=== PATIENT | female | born 1995 | race Caucasian/White ===

== ENCOUNTER 2023-06-14 12:12 | Emergency (ER) | payer OTHER, SELFPAY ==
[2023-06-14 12:19] VITALS: BP 123/82
--- NOTE | 2023-06-14 15:02 | ED.GENMED ---
History of Present Illness
General
Chief Complaint: Head Injury
Source: patient
Time Seen by Provider: 06/14/23 14:46
Travel History
Have you had any contact with someone who has COVID-19?: No
Do you have any symptoms of coronavirus? Fever > 100 degrees, chills, cough, shortness of breath, sore throat, loss of taste or smell, muscle aches, or headache?: No
History of Present Illness
History of Present Illness:
27-year-old female with past medical history of lupus and migraines presenting to the emergency department for evaluation after she was cleaning her bathroom over the weekend on Tuesday and excellently hit her head on the faucet and tile. She states
that at the time of the injury she felt dazed and had a little bit of blurred vision and has since that time had a headache. Patient's symptoms seem to be worse today and she was convinced by her family to come to the ER for further evaluation.
There is no reported loss of consciousness, vomiting, neck pain or stiffness, fevers or infectious symptoms, use of anticoagulants. Triage notes that patient is on a blood thinner however patient denies this and no thinners are being used. She
states pain is mainly along the mastoid and just anterior to the mastoid as well.
Past History
Past History
ED Past Medical History: Other (Lupus, vestibular migraine)
ED Past Surgical History: None
Social History
Tobacco: Non-smoker
Alcohol: None
Drug: None
Personal: Single
Living: with family
Employment: Employed
Review of Systems
Review of Systems
All Other Systems: ROS reviewed and negative except as documented in HPI and ROS
Phy Exam
Physical Exam
Physical Exam:
GENERAL: Alert , in no apparent distress
EYE: conjunctiva clear, pupils 3 mm bilateral
Head: Normocephalic atraumatic, there is tenderness just posterior to the auricle anterior to the mastoid but without any ecchymosis or breaks in skin or hematomas. Negative Yanes sign and negative raccoon eyes.
NECK: Supple, no midline tenderness
ENT: mmm.
LUNGS: no acute respiratory distress
NEUROLOGICAL: Alert and oriented
SKIN: Warm and dry, skin intact.
MUSCULOSKELETAL: well perfused.
PSYCH: Normal and appropriate interaction.
Scores
Heart Failure Risk
Heart Failure Risk Score: Not Applicable
Heart Score for Chest Pain Patients
STEMI patient?: Not applicable
Withdrawal Assessment of Alcohol
Withdrawal Assessment Completed?: Not applicable
Course
Vital Signs
Initial and Last Documented VS:
Initial Vital Signs
Pulse Resp BP Pulse Ox
95 18 123/82 100
06/14/23 12:19 06/14/23 12:19 06/14/23 12:19 06/14/23 12:19
Last Documented Vital Signs
Pulse Resp BP Pulse Ox
95 18 123/82 100
06/14/23 12:19 06/14/23 12:19 06/14/23 12:19 06/14/23 12:19
MDM/Problems Addressed
Differential Diagnosis Includes:
Concussion, I do not have concern for calvarial fracture or intracranial bleeding
MDM/Problems Addressed:
27-year-old female present emergency department for evaluation after she sustained an accidental head injury 2 days ago. Since that time patient has developed symptoms most consistent with concussion including headache, nausea, difficulty
concentrating and generally feeling unwell. Discussed management and symptoms of concussion with patient. I did offer a head CT however patient declines. Discussed return precautions to the emergency department as well as outpatient management.
She will be provided with a work note for a few days to rest. She is otherwise stable for discharge and aware of return precautions
*Pulse Oximetry
Patient hypoxic: no
*Critical Care Note
Total Time (30-74mins, 75-104mins- exclusive of procedures): Not Applicable
ED Attending Note
-
Portions of this chart may have been created with voice recognition software.� Occasional wrong word or��sound alike� substitutions may have occurred due to the inherent limitations of voice recognition software.
Discharge Plan
Departure
Patient Disposition: Home (Routine Discharge)
Date of Disposition: 06/14/23
Time of Disposition: 15:02
Patient with high blood pressure during this ER visit?: No
Discharge Problem:
Concussion without loss of consciousness
Instructions: Concussion, Adult (DC)
Prescriptions:
No Action
Control
1 tab PO DAILY
aripiprazole 2 MG tablet
2 mg PO DAILY
ondansetron 4 MG tablet,disintegrating
4 mg PO TIDPRN PRN (Reason: nauseu) Qty: 10 0RF
Stand Alone Forms: Return to Work
Interventions
Interventions:
*Risk Screen - Suicide Last Done: 06/14/23 15:01
*General Assessment Last Done: 06/14/23 15:01
*Neglect/Abuse Screening Last Done: 06/14/23 15:01
ED- Fall Risk Assessment Last Done: 06/14/23 14:57
*ED COVID-19 Vaccine History Last Done: 06/14/23 15:01
ED- Neurological Assessment Last Done: 06/14/23 14:57
ED-Skin Assessment Last Done: 06/14/23 14:57
== END 2023-06-14 15:23 | disposition home or self-care (01) ==
LOC: EMR 12:12
PROVIDERS: EMERGENCY PHYSICIAN Emergency Medicine; FAMILY PHYSICIAN Nurse Practitioner Adult Health
DX: S06.0X0A Concussion without loss of consciousness, initial encounter (principal); W22.09XA Striking against other stationary object, initial encounter
CPT/HCPCS: 99283

== ENCOUNTER → 2023-12-29 07:15 | Outpatient (REF) | payer OTHER, SELFPAY | LOC: MRI 3T 07:15 | PROVIDERS: ATTENDING PHYSICIAN Nurse Practitioner Adult Health | DX: G43.101 Migraine with aura, not intractable, with status migrainosus (principal) | CPT/HCPCS: 70551 ==

== ENCOUNTER 2024-04-01 08:44 | Emergency (ER) | payer OTHER, SELFPAY ==
[2024-04-01 08:45] VITALS: BP 108/58
--- NOTE | 2024-04-01 09:22 | ED.GENMED ---
History of Present Illness
General
Chief Complaint: Abdominal Symptoms
Time Seen by Provider: 04/01/24 09:09
History of Present Illness
History of Present Illness:
28-year-old female presents to the emergency department for evaluation of intractable vomiting and diarrhea beginning this morning. No known sick exposures. No significant abdominal pain at this time. No prior abdominal surgeries. Feels
comparable to a past bout of norovirus
Past History
Past History
ED Past Medical History: Other (Lupus, vestibular migraine)
ED Past Surgical History: None
Social History
Tobacco: Non-smoker
Alcohol: None
Drug: None
Personal: Single
Living: with family
Employment: Employed
Review of Systems
Review of Systems
Allergies reviewed?: Yes
All Other Systems: ROS reviewed and negative except as documented in HPI and ROS
Phy Exam
Physical Exam
Physical Exam:
GEN: Well appearing, NAD, WDWN
HEENT: Oral mucosa moist, no scleral icterus
Cardiac: Tachycardia, regular
Lung: No respiratory distress, no tachypnea
Abdomen: Soft, mildly tender in all 4 quadrants
MSK: No gross deformity or injuries
Skin: Good color, no pallor or jaundice, no rashes
Neuro: AO x3, moves all extremities freely
Psych: Calm, cooperative
Course
Orders/Labs/Results
Orders:
Orders
04/01/24 09:21
0.9% Sodium Chloride 1000 ml [Nss] 1,000 ml IV BOLUS
Ondansetron Injectable [Zofran] 4 mg IV NOW STA
04/01/24 09:35
Complete Blood Count/No Diff Urgent
Comprehensive Metabolic Panel Urgent
Lipase Urgent
Abnormal Lab Results
04/01/24
09:35
WBC 16.2 H 10^3/uL
(4.8-10.8)
MCH 31.8 H pg
(27.0-31.0)
MPV 10.7 H fL
(7.4-10.4)
Glucose 136 H mg/dl
(70-99)
Total Bilirubin 2.1 H mg/dl
(0.2-1.3)
04/01/24 09:35
04/01/24 09:35
Vital Signs
Initial and Last Documented VS:
Initial Vital Signs
Temp Pulse Resp BP Pulse Ox
98.9 F 90 16 108/58 100
04/01/24 08:45 04/01/24 08:45 04/01/24 08:45 04/01/24 08:45 04/01/24 08:45
Last Documented Vital Signs
Temp Pulse Resp BP Pulse Ox
97.6 F 91 20 114/74 99
04/01/24 09:45 04/01/24 11:07 04/01/24 11:07 04/01/24 11:07 04/01/24 11:30
MDM/Problems Addressed
MDM/Problems Addressed:
28-year-old female presents with likely viral gastroenteritis, no focal abdominal tenderness warranting imaging to rule out acute abdomen, labs reveal leukocytosis, otherwise reassuring. Given IV fluids with improvement in symptoms and able to
tolerate p.o. at time of discharge.
*Critical Care Note
Total Time (30-74mins, 75-104mins- exclusive of procedures): Not Applicable
ED Attending Note
-
Portions of this chart may have been created with voice recognition software.� Occasional wrong word or��sound alike� substitutions may have occurred due to the inherent limitations of voice recognition software.
Discharge Plan
Departure
Patient Disposition: Home (Routine Discharge)
Date of Disposition: 04/01/24
Time of Disposition: 11:13
Patient with high blood pressure during this ER visit?: No
Discharge Problem:
Gastroenteritis
Instructions: Nausea and Vomiting, Adult (DC)
Prescriptions:
New
ondansetron 4 mg tablet,disintegrating
4 mg PO TIDPRN PRN (Reason: nausea/vomiting) Qty: 10 0RF
No Action
Control
1 tab PO DAILY
Referrals:
Shandra Cadet CRNP [Family Provider] -
Interventions
Interventions:
*Risk Screen - Suicide Last Done: 04/01/24 08:47
*General Assessment Last Done: 04/01/24 09:45
*Neglect/Abuse Screening Last Done: 04/01/24 08:47
ED- Fall Risk Assessment Last Done: 04/01/24 09:45
*ED COVID-19 Vaccine History Last Done: 04/01/24 09:45
*Nursing Disposition Last Done: 04/01/24 11:36
TZ-Mpnwiv-[id number] Assessment Last Done: 04/01/24 09:45
Discharge Date and Time
Discharge Date/Time: 04/01/24 11:40
Print Language: [id number]
[2024-04-01] MEDS: NSS 1000 IV (09:31)
[2024-04-01] MEDS: ZOFRAN 4 MG IV (09:31)
[2024-04-01 09:43] LABS: Hematocrit 41.1 % (37.0-47.0); Hemoglobin 14.7 g/dL (12.0-16.0); Mean Corp Hgb Conc. 35.8 g/dL (33.0-37.0); Mean Corpuscular Hgb 31.8 pg (27.0-31.0); Mean Platelet Volume 10.7 fL (7.4-10.4); Platelet Count 235 10^3/uL (130-400); Red Blood Cell Count 4.62 10^6/uL (4.20-5.40); Red Cell Dist. Width 11.6 % (11.5-14.5); White Blood Cell Count 16.2 10^3/uL (4.8-10.8)
[2024-04-01 09:45] VITALS: BP 98/59; BMI 23.5
[2024-04-01 10:00] VITALS: BP 85/68
[2024-04-01 10:00] LABS: ALT (SGPT) 31 U/L (0-35); AST (SGOT) 32 U/L (14-36); Albumin 4.8 g/dl (3.5-5.0); Alkaline Phosphatase 68 U/L (38-126); Blood Urea Nitrogen 12 mg/dl (7-17); Calcium 9.6 mg/dl (8.4-10.2); Carbon Dioxide 23 mmol/L (22-30); Chloride 103 mmol/L (98-107); Estimated Creatinine Clearance > 125 ml/min; Glucose 136 mg/dl (70-99); Lipase 72 U/L (23-300); Sodium 138 mmol/L (135-145); Total Bilirubin 2.1 mg/dl (0.2-1.3); Total Protein 7.4 g/dl (6.3-8.2); eGFR > 60.00
[2024-04-01 10:34] VITALS: BP 117/69
[2024-04-01 11:00] VITALS: BP 114/74
[2024-04-01 11:07] VITALS: BP 114/74
== END 2024-04-01 11:40 | disposition home or self-care (01) ==
LOC: EMR 08:44
PROVIDERS: Physician Assistant; EMERGENCY PHYSICIAN Emergency Medicine; FAMILY PHYSICIAN Nurse Practitioner Adult Health
DX: K52.9 Noninfective gastroenteritis and colitis, unspecified (principal); M32.9 Systemic lupus erythematosus, unspecified; G43.909 Migraine, unspecified, not intractable, without status migrainosus
CPT/HCPCS: 99284; 96374; 96361; 80053; 83690; 85027